=== PATIENT | female | born 1995 | race Caucasian/White ===

== ENCOUNTER 2024-05-14 18:23 | Emergency (ER) | payer OTHER ==
[~2024-05-14] VITALS: Ht 154.9 cm; Wt 43.5 kg
[2024-05-14] MEDS ORDERED: Cephalexin Monohydrate 500 MG Cap PO ONE (19:35)
[2024-05-14] MEDS ORDERED: CEPH500 PO (19:35)
== END 2024-05-14 19:41 | disposition home or self-care (01) ==
LOC: ER 18:23
DX: L02.211 Cutaneous abscess of abdominal wall (principal); E10.9 Type 1 diabetes mellitus without complications; Z88.5 Allergy status to narcotic agent
CPT/HCPCS: 99283; A9270